=== PATIENT | female | born 1985 | race Caucasian/White ===

== ENCOUNTER 2022-10-17 08:27 | Outpatient (CLI) | payer OTHER, BC, SELFPAY ==
--- OUTSIDE RECORDS SUMMARY | 2022-10-17 08:36 | XMS_ITS | Encounter Summary ---
:1985 Author Organization [facility] Address [address] [place] [address] Care Team Providers Name Role Phone Flora Rico APRN, CNP Primary Care Provider [phone] Encounter Details Date Type Department Care Team Description 04/09/2019 Orders Only Juan Miguel Aguilar Flora Rico, Hypothyroidism, [address] RASHARD BERG unspecified type MARCIO Encarnacion 100 [facility] [address] [place] [address] Social History Tobacco Use Types Packs/Day Years Used Date Smoking Tobacco: Never Smokeless Tobacco: Never Alcohol Use Standard Drinks/Week Comments No 0 (1 standard drink = 0.6 oz pure alcoho l) Alcohol Habits Answer Date Recorded How often do you have a drink containing alcohol? Never 04/08/2019 How many drinks containing alcohol do you have on a typical Not asked day when you are drinking? How often do you have six or more drinks on one occasion? No t asked Education Answer Date Recorded What is the highest level of school Bachelor's degree (e.g., BA, AB, 03/29/2019 you have completed or the highest BS) degree you have received? Sex Assigned at Date Recorded Not on file documented as of this encounter Plan of Treatment Not on filedocumented as of this encounter Visit Diagnoses Diagnosis Hypothyroidism, unspecified type documented in this encounter Care Teams Shingle Weaver Relationship Specialty Start Date End Date Flora Rico, OTIS, ANIMAL HUSBANDRY WORKER PCP - General 06/22/18 07/23/20 [address] [place] [address] documented as of this encounter
--- OUTSIDE RECORDS SUMMARY | 2022-10-17 08:36 | XMS_ITS | Encounter Summary ---
:1985 Author Organization [facility] Address [address] [place] [address] Care Team Providers Name Role Phone Flora Rico APRN, TOWER HELPER Primary Care Provider [phone] Encounter Details Date Type Department Care Team Description 04/08/2019 Lab Juan Miguel Aguilar Palpitations; [address] Hypothyroidism, unspecified type MARCIO Encarnacion [address] Social History Tobacco Use Types Packs/Day Years [...] Not on filedocumented as of this encounter Procedures Procedure Name Priority Date/Time Associated Diagnosis Comme nts GLOMERULAR Routine 04/08/2019 9:37 AM Palpitations Results f or this FILTRATION RATE CDT procedure ar e in the results section. TSH Routine 04/08/2019 9:37 AM Hypothyroidism, Result s for this CDT unspecified type procedure a re in the results section. BASIC METABOLIC Routine 04/08/2019 9:37 AM Palpitations Result s for this PANEL CDT procedure are i n the results section. documented in this encounter Results Glomerular filtration rate (GFR) (04/08/2019 9:37 AM CDT) athologist Signature GFR >60 04/08/2019 [facility] 6:51 PM CDT [facility] >60 04/08/2019 [facility] [place] GFR 6:51 PM CDT [facility] Comment: GFR calculated from serum creatinine v alue Chronic Kidney Disease less than 60 mL/m in/1.73 m2 Kidney Failure less than 15 mL/min/1.73 m2 Note: effective 03/31/07 IDMS-Traceable MDRD Study Equation used. Specimen Anatomical Collection Method Collection Time Receive d Time (Source) Location / / Volume Laterality 04/08/2019 9:37 AM 9 9:37 CDT AM CDT Flora Rico APRN, CNP LAB BLOOD ORDERABLES Performing Organization Address [facility] Phon e Number [facility] [address] [place] [address] TSH (04/08/2019 9:37 AM CDT) athologist Signature TSH, Sensitive 4.04 0.46 - 04/08/2019 [facility] 4.68 mIU/L 7:09 PM CDT [facility] Comment: The results from this or any other diagn ostic test should be used and interpreted only in the context of the overall clinical picture. Biotin levels in serum remain elevated f or up to 24 hours after oral or intravenous biotin adminis tration and may interfere with this assay to produce unr eliable results. Heterophilic antibodies in serum or plas ma samples may cause interference in immunoassays. ??Exposure to animal antigens, either in the environment or as part of treatment or imaging procedures, may have circulating anti-an imal antibodies present. These antibodies may interfere with the assay reagents to produce unreliable results. ??Results which are inconsistent with clinical observations indicate the need for additional testing. Specimen Anatomical Collection Method Collection Time Receive d Time (Source) Location / / Volume Laterality Blood (Blood, 04/08/2019 9:37 AM 04/08/20 19 5:38 Venous) CDT PM CDT Flora Rico APRN, CNP LAB BLOOD ORDERABLES Performing Organization Address City/[facility] Phon e Number [facility] [address] [place] [address] (ABNORMAL) Basic metabolic panel (04/08/2019 9:37 AM CDT) Analysis Performed At Patho logist Time Signature Sodium 140 135 - 145 04/08/2019 [facility] mEq/L 6:[address] [facility] Potassium 4.4 3.5 - 5.1 04/08/2019 [facility] mEq/L 6:[address] [facility] Chloride 104 98 - 107 04/08/2019 [facility] mEq/L 6:[address] [facility] CO2 31 (H) 22 - 29 04/08/2019 [facility] mmol/L 6:[address] [facility] Creatinine 0.8 0.4 - 1.2 04/08/2019 [facility] mg/dL 6:[address] [facility] BUN 18 5 - 25 04/08/2019 [facility] mg/dL 6:[address] [facility] Glucose 101 (H) 70 - 100 04/08/2019 [facility] mg/dL 6:[address] [facility] Calcium, 9.5 8.4 - 10.2 04/08/2019 [facility] Total,S mg/dL 6:[address] [facility] Fasting? No 04/08/2019 [facility] 9:38 AM [place] Specimen Anatomical Collection Method Collection Time Receive d Time (Source) Location / / Volume Laterality Blood (Blood, 04/08/2019 9:37 AM 04/08/20 19 9:37 Venous) CDT AM CDT Flora Rico APRN, CNP LAB BLOOD ORDERABLES Performing Organization Address City/State/ZIP Code Phon e Number [facility] [employer] [address] [place] [address] [facility] [address] [place] [address] LABORATORY documented in this encounter Visit Diagnoses Diagnosis Palpitations Hypothyroidism, unspecified type documented in this encounter Care Teams Corsets Salesperson Relationship Specialty Start Date End Date Flora Rico APRN, RASHARD PCP - General 06/22/18 07/23/20 100 [facility] [place] [id number] documented as of this encounter
--- OUTSIDE RECORDS SUMMARY | 2022-10-17 08:36 | XMS_ITS | Clinical Summary ---
:1985 Author Organization [facility] Address [address] [place] [address] Care Team Providers Name Role Phone Flora Rico APRN, REFRIGERATION PLANT CORK INSULATOR Primary Care Provider [phone] Allergies Active Allergy Reactions Severity Noted Date Comments Seasonal 10/18/2010 Gets stomach ac hes from all medication, but not allergi c to any. Medications Medication Sig Dispensed Refills Start Date End Date Status valACYclovir (VALTREX) Take 2 tablets 4 tablet 6 12/08/2018 Active 1 g tabletIndications: twice a day for Cold sore one day for cold sore if needed cetirizine (ZyrTEC) 10 Take 10 mg by 0 Active MG tablet mouth 1 (one) time each day levothyroxine TAKE ONE TABLET 90 tablet 3 04/09/2019 Active (SYNTHROID, LEVOTHROID) BY MOUTH EVERY 50 MCG DAY ON AN EMPTY tabletIndications: STOMACH 30 Hypothyroidism, MINUTES BEFORE unspecified type THE FIRST MEAL OF THE DAY etonogestrel-ethinyl INSERT ONE RING 9 each 3 01/03/2020 Active estradiol (NUVARING) INTO THE VAGINA 0.12-0.015 MG/24HR FOR 3 WEEKS, vaginal REMOVE FOR ONE ringIndications: WEEK, REPEAT WITH Encounter for NEW RING contraceptive management, unspecified type Active Problems No known active problems Immunizations Name Administration Dates Next Due INFLUENZA QUADRIVALENT MDV (IM) 08/10/2018, 08/07/2017, 07/18 Influenza (IM) Preservative Free 09/06/2013, 08/22/2009 Influenza TIV (IM) 08/04/2014, 09/06/2013, 08/06/2012, 08/20/2011, 09/13/2010, 09/20/2008 Influenza, Unspecified 09/06/2013, 08/20/2011, 09/20/2008 TD Preservative Free 07/17/2006 Td 07/17/2006 Tdap 06/29/2013, 04/13/2009 Family History Medical History Relation Comments Anesthesia problems Brother Hyperlipidemia Father Lung cancer Maternal Grandmother Anesthesia problems Mother Colon cancer Paternal Grandfather Hyperlipidemia Paternal Grandfather Breast cancer Paternal Grandmother Hyperlipidemia Paternal Grandmother Anesthesia problems Sister Asthma Sister Celiac disease Sister Mental illness Sister Relation Status Comments Brother Father Maternal Grandmother Mother Paternal Grandfather Paternal Grandmother Sister Social History Tobacco Use Types Packs/Day Years [...] Assigned at Date Recorded Not on file Last Filed Vital Signs Vital Sign Reading Time Taken Comments Blood Pressure 112/84 04/08/2019 8:39 AM CDT Pulse 81 04/08/2019 8:39 AM CDT Temperature 36.4 ??C (97.6 ??F) 04/08/2019 8:39 AM CDT Respiratory Rate 16 04/08/2019 8:39 AM CDT Oxygen Saturation 100% 04/08/2019 8:39 AM CDT Inhaled Oxygen Concentration - - Weight 67.8 kg (149 lb 7.6 oz) 04/08/2019 8:39 AM CDT Height 167 cm (5' 5.75) 04/08/2019 8:39 AM CDT Body Mass Index 24.31 04/08/2019 8:39 AM CDT Plan of Treatment Health Maintenance Due Date Last Done Comments COVID-19 Vaccine (4 - 02/26/2022 01/01/2022, 04/02/2021, Booster for Moderna series) 03/05/2021 Pap Smear 04/08/2022 04/08/2019, 04/29/2016 DTaP,Tdap,and Td Vaccines 06/29/2023 06/29/2013, 04/13/2009 , (3 - Td or Tdap) 07/17/2006, Additional history exists HPV Vaccines Aged Out No longer eligib le based on patient 's age to complete this topic Pneumococcal Vaccine: Aged Out No longer eligible Pediatrics (0 to 5 Years) based on patient's age and At-Risk Patients (6 to to co mplete this topic 64 Years) Insurance Payer Benefit Plan / Subscriber ID Effective Phone Address T ype Group Dates [facility] [id number] 2017-Pres [address] [place] [address] [facility] [id number] 2017-Pres [address] [address] [place] [address] [place] [address] (Home) [address] [place] [address] Care Teams Apprentice Carpenter Relationship Specialty Start Date End Date Flora Rico, SPEECH AND LANGUAGE CLINICIAN, REFRIGERATION PLANT CORK INSULATOR PCP - General Family Medicine 07/01/[address] [place] [address] [place] [address]
--- OUTSIDE RECORDS SUMMARY | 2022-10-17 08:36 | XMS_ITS | Clinical Summary ---
:1985 Author Organization [facility] [place] [address] Care Team Providers Name Role Phone Ayanna Johansen MD Unavailable [phone] Flora Rico NP Primary Care Provider Allergies Active Allergy Reactions Severity Noted Date Comments Unlisted Allergen Other - Describe In get s stomach aches (Include Detail In Comment Field from all medication, Comments) but not allergi c to any Medications Medication Sig Dispensed Refills Start Date End Date Status levothyroxine (LEVO-T) 50 Take 1 tablet 0 12/29/2019 Active mcg tablet by mouth before breakfast. cetirizine (ZYRTEC) 5 mg Take 1 tablet 0 12/29/2019 Active tablet by mouth once daily. Lactobac 42-Bifid Take by mouth. 0 12/29/2019 Active 8-yrihla-UNE 30-500-50 mg pwpk ascorbic acid, vitamin C, Take 1 tablet 0 12/29/2019 Active (VITAMIN C) 1,000 mg by mouth once tablet daily. cholecalciferol, Vitamin Take by mouth 1 Bottle 0 12/29/2019 Active D3, (D--SAV) 10 mcg/mL once daily. (400 unit/mL) drops elderberry fruit and Take by mouth. 0 12/29/2019 Active flower 460-115 mg cap melatonin 10 mg cap Take by mouth 0 12/29/2019 Active once daily in the evening. Cimetidine (TAGAMET) 800 Take 1 tablet 30 tablet 2 01/02/2020 Active mg tabletIndications: by mouth at Gastroesophageal reflux bedtime. 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 Overview: lactose intolerance Resolved Problems Problem Noted Date Resolved Date Supervision of normal first 08/31/2008 Immunizations Name Administration Dates Next Due Influenza, IIV3 (Age >=3 years) 09/20/2008 Td (Age >=7 Years) 07/17/2006 Tdap 04/13/2009 Family History Medical History Relation Name Comments Other Brother 2 hydrocephalus Hyperlipidemia Father Thyroid Disease Father low Hypertension Mother high Thyroid Disease Mother low Cancer-breast Paternal Grandmother age 68 Thyroid Disease Sister 2 Relation Name Status Comments Brother 1 Alive Brother 2 Father Alive Mother Alive Paternal Grandmother Sister 1 Alive Sister 2 Social History Tobacco Use Types Packs/Day Years Used Date Former Smoker Smokeless Tobacco: Never Used Comments: 04/2006 Alcohol Use Standard Drinks/Week Comments No 0 (1 standard drink = 0.6 oz pure alcoho l) 1-2 drinks a month Sex Assigned at Date Recorded Not on file Obstetrics History Para Term AB IAB SAB Ectopic Multiple Living Live Births 1 1 1 1 1 Date Outcome GA Total Labor/2nd/3rd Weight Sex Delivery Anes PTL Adela A 1 A5 Name Clin Labor 03/01 Term 41w 12h 00m/ 3.57 kg F Vag Epidu N Lisa L [facility] /2008 0d (7 lb ral ng zie 14 oz) Delivery Location: [place] Last Filed Vital Signs Vital Sign Reading Time Taken Comments Blood Pressure 126/84 12/29/2019 1:05 PM PHOTOGRAPHER'S MODEL Pulse 70 12/29/2019 1:05 PM PHOTOGRAPHER'S MODEL Temperature 36.9 ??C (98.4 ??F) 04/05/2010 4:24 PM CDT Respiratory Rate 12 12/29/2019 1:05 PM PHOTOGRAPHER'S MODEL Oxygen Saturation 100% 12/29/2019 1:05 PM PHOTOGRAPHER'S MODEL Inhaled Oxygen Concentration - - Weight 68.5 kg (151 lb) 12/29/2019 1:05 PM PHOTOGRAPHER'S MODEL Height 165.1 cm (5' 5) 06/14/2010 9:23 AM CDT Body Mass Index 25.13 06/14/2010 9:23 AM CDT Plan of Treatment Health Maintenance Due Date Last Done Comments COVID-19 vaccine series (#1) 06/16/1984 Depression screening for age 12+ 1995 BMI (ht and wt on same day) for age 0212/17/2001 18+ Hepatitis C screening for age 18-79 2001 Pap test for age 21-65 06/14/2013 06/14/2010, 06/14/2010, 04/13/2009 Tetanus booster 04/13/2019 04/13/2009, 07/17/2006 Influenza for age 9-49 07/17/2022 09/20/2008 HIV for age 15-65 Completed 08/02/2008 Tdap Completed 04/13/2009 Results Not on filefrom Last 3 Months Insurance Payer Benefit Plan / Subscriber ID Effective Dates Phone Addre ss Type Group [employer] [id number] 2019-Present [address] [place] [address] [employer] [id number] 2020-Presen [address] [facility] [place] [place] [address] Care Teams Informatics Nurse Specialist Relationship Specialty Start Date End Date Flora Rico NP PCP - General Emergency Medicine 12/29/19 Ayanna Johansen MD 07/22/11 [address] MARCIO Otto [id number]
--- OUTSIDE RECORDS SUMMARY | 2022-10-17 08:36 | XMS_ITS | Encounter Summary ---
:1985 Author Organization [facility] Address [address] [place] [address] Care Team Providers Name Role Phone Flora Rico CARD BRUSHER, ACADEMIC SUPPORT SPECIALIST Primary Care Provider [phone] Reason for Visit Reason Onset Date Comments Question on Cream Rx 06/30/2019 Encounter Details Date Type Department Care Team Description 06/30/2019 Telephone [place] Flora Rico, Question on Cream Rx [address] CARD BRUSHER, ACADEMIC SUPPORT SPECIALIST [place], [place] [address] [address] [facility] [phone] [place], [place] [address] Social History Tobacco Use Types Packs/Day Years [...] on file documented as of this encounter Miscellaneous Notes Telephone Encounter - Sanjuana Francois LPN - 06/30/2019 1:10 PM CDT Verbal given for 22g Ointment for the Mupirocin because the cream was 200.00 per Bert at the pharmacy. Telephone Encounter - Dolores Lester - 06/30/2019 11:38 AM CDT Bert with [facility] called requesting to talk with a nurse regarding the cream Rx. Please call Bert at [phone]. documented in this encounter Plan of Treatment Not on filedocumented as of this encounter Visit Diagnoses Not on filedocumented in this encounter Care Teams Supervisor Special Services Relationship Specialty Start Date End Date Flora Rico APRN, ACADEMIC SUPPORT SPECIALIST PCP - General 06/22/18 07/23/[address] [place] [address] MARCIO PITTS [address] documented as of this encounter
--- OUTSIDE RECORDS SUMMARY | 2022-10-17 08:36 | XMS_ITS | Encounter Summary ---
:1985 Author Organization [facility] Address [address] [place] [address] Care Team Providers Name Role Phone Flora Rico APRN, RASHARD Primary Care Provider Encounter Details Date Type Department Care Team Description 07/01/2021 Lab [place] [address] [place] [address] Social History Tobacco Use Types Packs/Day Years [...] as of this encounter Plan of Treatment Pending Results Name Type Priority Associated Diagnoses Date/Ti ut Lab collection (kit) level Lab Routine 0 07/01/2021 8:57 AM CDT 2 documented as of this encounter Visit Diagnoses Not on filedocumented in this encounter Care Teams Crusher Dry Ground Mica Relationship Specialty Start Date End Date Flora Rico APRN, VICE PRESIDENT PROCESS PCP - General Family Medicine 07/01/[address] [place] [address] documented as of this encounter
--- OUTSIDE RECORDS SUMMARY | 2022-10-17 08:36 | XMS_ITS | Encounter Summary ---
:1985 Author Organization [facility] Address [address] [place] [address] Care Team Providers Name Role Phone Flora Rico APRN, CNP Primary Care Provider [phone] Encounter Details Date Type Department Care Team Description 06/30/2019 Orders Only Blane Aguilar Flora Rico, Impetigo (Primary Dx) [address] RASHARD BERG [place], [place] 100 [facility] [address] [place] [address] Social History Tobacco Use Types Packs/Day Years [...] as of this encounter Visit Diagnoses Diagnosis Impetigo - Primary documented in this encounter Care Teams Glucose And Syrup Weigher Relationship Specialty Start Date End Date Flora Rico APRN, PROFILER HAND PCP - General 06/22/18 07/23/20 [address] [place] [address] documented as of this encounter
--- OUTSIDE RECORDS SUMMARY | 2022-10-17 08:36 | XMS_ITS | Encounter Summary ---
:1985 Author Organization [facility] Address [address] [place] [address] Care Team Providers Name Role Phone Flora Rico APRN, CNP Primary Care Provider [phone] Encounter Details Date Type Department Care Team Description 07/30/2019 Telephone Juan Miguel Aguilar Flora Rico, [address] RASHARD BERG [place], [place] [address] 100 [facility] [phone] [place], [place] [address] Social History Tobacco Use [...] this encounter Miscellaneous Notes Telephone Encounter - Flora Rico APRN, CNP - 07/30/2019 9:18 AM CDT The patient reports that she has developed pinkeye on the Thursday morning therefore a prescription for gentamicin was sent to the pharmacy. documented in this encounter Plan of Treatment Not on filedocumented as of this encounter Visit Diagnoses Diagnosis Conjunctivitis of both eyes, unspecified conjunctivitis type - Primary documented in this encounter Care Teams Transcription Relationship Specialty Start Date End Date Flora Rico APRN, PLANT ANATOMIST PCP - General 06/22/18 07/23/20 100 [place] [address] documented as of this encounter
--- OUTSIDE RECORDS SUMMARY | 2022-10-17 08:36 | XMS_ITS | Encounter Summary ---
:1985 Author Organization [facility] Address [address] [place] [address] Care Team Providers Name Role Phone Flora Rico ACTING INSTRUCTOR, STOCK HOLDER Primary Care Provider [phone] Reason for Visit Reason Comments Med Refill Encounter Details Date Type Department Care Team Description 01/02/2020 Refill [place] Flora Rico, Encounter for [address] ACTING INSTRUCTOR, STOCK HOLDER contraceptive [place], [place] [address] [facility] management, unspecified [phone] [place], [place] [address] type Social History Tobacco Use Types Packs/Day Years [...] this encounter Miscellaneous Notes Telephone Encounter - Alejandra Barcenas LPN - 01/03/2020 7:49 AM CST Requested Prescriptions Pending Prescriptions Disp Refills ??? etonogestrel-ethinyl estradiol (NUVARING) 0.12-0.015 MG/24HR vaginal ring [Pharmacy Med Name: NUVARING 0.12-0.015MG/24HR RING] 9 each 3 Sig: INSERT ONE RING INTO THE VAGINA FOR 3 WEEKS, REMOVE FOR ONE WEEK, REPEAT WITH NEW RING Nuvaring is not found as current medication. Found in med history: etonogestrel-ethinyl estradiol (NUVARING) 0.12-0.015 MG/24HR vaginal ring [[id number]] ??DISCONTINUED ?? Order Details Dose, Route, Frequency: As Directed Dispense Quantity: 9 each Refills: 3 Fills remaining: -- ?? Sig: Insert vaginally and leave in place for 3 consecutive weeks, then remove for 1 week. Patient not taking: Reported on 04/08/2019 ?? Discontinue Date: 04/08/2019 09:25 Discontinue User: Flora Rico APRN, STOCK HOLDER Discontinue Reason: -- Please review and advise pharmacy if refill is or is not appropriate. Thank you! TIONAL CHILDCARE TEACHER documented in this encounter Plan of Treatment Not on filedocumented as of this encounter Visit Diagnoses Diagnosis Encounter for contraceptive management, unspecified type documented in this encounter Care Teams Retoucher Relationship Specialty Start Date End Date Flora Rico APRN, STOCK HOLDER PCP - General 06/22/18 07/23/[address] [place] [address] M[place] P[place] [address] documented as of this encounter
--- OUTSIDE RECORDS SUMMARY | 2022-10-17 08:37 | XMS_ITS | Encounter Summary ---
:[address] [facility] Address [address] [place] [address] Care Team Providers Name Role Phone Flora Rico APRN, RASHARD Primary Care Provider [phone] Reason for Visit Reason Onset Date Comments Med Refill 10/12/2018 Encounter Details Date Type Department Care Team Description 10/12/2018 Refill [place] Flora Rico, Encounter for [address] RASHARD BERG contraceptive [place], [place] [address] 100 [facility] management, unspecified [phone] [place], [place] [address] type Social History Tobacco Use Types Packs/Day Years Used Date Smoking Tobacco: Never Assessed Alcohol Habits Answer Date Recorded How often do you have a drink containing alcohol? Never 04/08/2019 How many drinks containing alcohol do you have on a typical Not asked day when you are drinking? How often do you have six or more drinks on one occasion? No t asked Sex Assigned at Date Recorded Not on file documented as of this encounter Miscellaneous Notes Telephone Encounter - Sanjuana Francois LPN - 10/12/2018 8:22 AM CST 03/09/2018 PHYSICAL Pending: Nuvaring Family Fare AMINATED LAND CONSULTANT documented in this encounter Plan of Treatment Not on filedocumented as of this encounter Visit Diagnoses Diagnosis Encounter for contraceptive management, unspecified type documented in this encounter Care Teams Reception Manager Relationship Specialty Start Date End Date Flora Rico APRN, CARPENTER HELPER MAINTENANCE PCP - General Family Medicine 07/01/[address] [facility] [place] [id number] documented as of this encounter
--- OUTSIDE RECORDS SUMMARY | 2022-10-17 08:37 | XMS_ITS | Encounter Summary ---
:1985 Author Organization [facility] Address [address] [place] [id number] Care Team Providers Name Role Phone Charlee Rico CLINICAL QUALITY ANALYST, SOLE MOLDER Primary Care Provider [phone] Reason for Visit Reason Comments Annual Exam Encounter Details Date Type Department Care Team Description 04/08/2019 Office Visit Blane Aguilar Charlee Rico Annual physical exam (Primar y Dx); [address], RASHARD BERG Palpitations; [place] [address] Hypothyroidism, unspecified type; [address] [place] [address] Floaters in visual field, bilateral; [phone] Mass of left hand; Screening for c ervical cancer Social History Tobacco Use Types Packs/Day Years [...] on file documented as of this encounter Last Filed Vital Signs Vital Sign Reading [...] Mass Index 24.31 04/08/2019 8:39 AM CDT documented in this encounter Patient Instructions Patient InstructionsCharlee Rico APRN, CNP - 04/08/2019 8:40 AM CDT Will call with the lab results No medication changes now documented in this encounter Progress Notes Charlee Rico APRN, CNP - 04/08/2019 8:40 AM CDT Well Adult - Estab Subjective Patient ID: Michelle Serra is a 33 y.o. female presenting for the following concerns. Chief Complaint Patient presents with ??? Annual Exam HPI: The patient is an otherwise healthy 33-year-old female presenting ambulatory to the clinical settingtoday for an annual physical. 3, para 3. The patient's last menstrual period was 2 weeks ago, with light spotting since, as she is no longer on the NuvaRing. The patient is in a monogamous relationship with her who had a vasectomy 1 month ago, and she is no longer needing contraception. The patient reports the post vasectomy semen analysis has not been completed yet. The patient had anormal Pap smear on 04/29/2016, no HPV co- testing; therefore, she is due. The patient's immunizationsare up to date including her Tdap on 06/29/2013. The patient formally exercises on a daily basis. Thepatient feels she attains an adequate amount of dietary calcium as she does drink lactose-free milk. The patient has a history of allergies, irritable bowel syndrome, cold sores, and hypothyroidism. The patient takes Zyrtec 10 mg daily for her seasonal allergies, with fair control of her symptoms. Thepatient is on a probiotic daily for irritable bowel syndrome symptoms, which is effective. The patient takes Valtrex as needed for cold sores. The patient has a history of hypothyroidism, diagnosed in April,, and is currently on Synthroid 50 mcg daily. The patient reports she has a mass as she points to the palmar surface of her left hand, along the third MCP joint, which is not bothersome, unless she applies direct pressure on it, such as when she grabs the handle of a shovel, most noticeable when shoveling snow this winter. The patient has had 3 episodes of heart palpitations in the past couple of months. The patient reports the first episode of palpitations started when she was extremely stressed, leaving her with a feeling her heart was beating in her throat, which lasted for about 1/2-hour. She reports the second episode was on her way home from the gym, after exercising, when she was not stressed, and more recently a minor episode occurred. She is unsure if her heart rate is regular, or irregular. The patient denies any chest pain discomfort, but more of an annoyance. The patient denies any other symptoms associated with the palpitations, no diaphoresis, dyspnea, lightheadedness, dizziness, presyncope and/or syncope. The patient has experienced lightheadedness and dizziness, not associated with her palpitations, butparticularly if she stands up too fast. She had one episode of dizziness, when helping one of her children this winter, standing up quickly, when she experienced cold sweats, and had to sit down to alleviate the felling. The patient feels her symptoms are directly correlated with positional changes. The patient reports she has had episodes of floaters, flashing lights in front of her eyes, bilaterally, which will last for about 1/2-hour, with a tired headache afterwards, as she has strained her eyes, but she does not develop a headache per se. She has had 4 episodes since the beginning of the year. The patient researched her symptoms which she feels they are consistent with an ocular migraine. No associated dizziness, palpitations, or other neurological symptoms. The following portions of the patient's chart were reviewed in this encounter and updated as appropriate: Tobacco Allergies Meds Problems Med Hx Surg Hx Fam Hx Soc Hx Current Outpatient Medications: ??? cetirizine (ZyrTEC) 10 MG tablet, Take 10 mg by mouth 1 (one) time each day, Disp: , Rfl: ??? valACYclovir (VALTREX) 1 g tablet, Take 2 tablets twice a day for one day for cold sore if needed, Disp: 4 tablet, Rfl: 6 ??? levothyroxine (SYNTHROID, LEVOTHROID) 50 MCG tablet, TAKE ONE TABLET BY MOUTH EVERY DAY ON AN EMPTY STOMACH 30 MINUTES BEFORE THE FIRST MEAL OF THE DAY, Disp: 90 tablet, Rfl: 3 Allergies Allergen Reactions ??? Seasonal Gets stomach aches from all medication, but not allergic to any. Immunization History Administered Date(s) Administered ??? INFLUENZA QUADRIVALENT MDV (IM) 08/10/2015, 08/07/2017, 08/10/2018 ??? Influenza (IM) Preservative Free 08/22/2009, 09/06/2013 ??? Influenza TIV (IM) 09/20/2008, 09/13/2010, 08/20/2011, 08/06/2012, 09/06/2013, 08/04/2014 ??? Influenza, Unspecified 09/20/2008, 08/20/2011, 09/06/2013 ??? TD Preservative Free 07/17/2006 ??? Td 07/17/2006 ??? Tdap 04/13/2009, 06/29/2013 Past Medical History: Diagnosis Date ??? Hx of cold sores ??? Hypothyroidism Past Surgical History: Procedure Laterality Date ??? BREAST SURGERY 06/2002 History of breast surgery + Breast reduction 06/2002 Family History Problem Relation Age of Onset ??? Anesthesia problems Mother ??? Hyperlipidemia Father ??? Mental illness Sister ??? Anesthesia problems Sister ??? Celiac disease Sister ??? Asthma Sister ??? Anesthesia problems Brother ??? Lung cancer Maternal Grandmother ??? Hyperlipidemia Paternal Grandmother ??? Breast cancer Paternal Grandmother ??? Hyperlipidemia Paternal Grandfather ??? Colon cancer Paternal Grandfather Social History Socioeconomic History ??? Marital status: Spouse name: Not on file ??? Number of children: Not on file ??? Years of education: Not on file ??? Highest education level: Bachelor's degree (e.g., BA, AB, BS) Occupational History Comment: [employer] Social Needs ??? Financial resource strain: Not on file ??? Food insecurity: Worry: Not on file Inability: Not on file ??? Transportation needs: Medical: Not on file Non-medical: Not on file Tobacco Use ??? Smoking status: Never Smoker ??? Smokeless tobacco: Never Used Substance and Sexual Activity ??? Alcohol use: No Frequency: Never ??? Drug use: No ??? Sexual activity: Not on file Lifestyle ??? Physical activity: Days per week: Not on file Minutes per session: Not on file ??? Stress: Not on file Relationships ??? Social connections: Talks on phone: Not on file Gets together: Not on file Attends uatsdin service: Not on file Active member of club or organization: Not on file Attends meetings of clubs or organizations: Not on file Relationship status: Not on file ??? Intimate partner violence: Fear of current or ex partner: Not on file Emotionally abused: Not on file Physically abused: Not on file Forced sexual activity: Not on file Other Topics Concern ??? Not on file Social History Narrative ??? Not on file REVIEW OF SYSTEMS: GENERAL: No fevers, chills, change in weight and/or change in appetite. The patient has a certain level fatigue, which has not changed in nature. The patient has insomnia; she typically can fall asleep, but then wakes up at midnight, often takes a melatonin, is able to fall back to sleep, and not wakeup groggy the next morning. SKIN: No rashes, lesions and/or pruritus. The patient was recently diagnosed with impetigo on her right face, and is being treated with Keflex, with resolution of her symptoms. HEAD AND NECK: The patient does not typically have headaches nor neck discomfort. EYES: See HPI. The patient has experienced floaters, flashing lights in her eyes, bilaterally, whichhas happened 4 times this past year leaving her with a tired feeling in her eyes, causing some mild headache discomfort, but not a headache per se. The patient was evaluated by an assistant professor of drama last year, and these symptoms started after her last visual exam. EARS: No hearing loss, no tinnitus. NOSE: The patient does have seasonal allergies controlled with Zyrtec 10 mg daily. No chronic sinusitis. MOUTH AND THROAT: No problems with her teeth or gums. She sees a dentist on a regular basis. CARDIOVASCULAR: See HPI. The patient has episodes of lightheadedness and dizziness when she stands too quickly. The patient reports she has had 3 different episodes of palpitations, in the past 2 months, the first 1 lasted an entire half hour, a feeling her heartbeat is in her throat, the second one gardner ppened after a work out in the gym, and she had a recent brief episode. The patient has no associated symptoms with the palpitations, no diaphoresis, dyspnea, chest pain, discomfort, lightheadedness, dizziness, presyncope and/or syncope. No peripheral edema. No cardiac murmurs. RESPIRATORY: No dyspnea on exertion, cough, asthma and/or wheezing. BREASTS: No masses, discharge, or change in appearance. GASTROINTESTINAL: The patient reports she has irritable syndrome which has improved with a probiotic. She denies nausea, vomiting, diarrhea, hematochezia, heartburn, and/or constipation. GENITOURINARY: No urinary frequency, urgency, and/or hematuria. GYNECOLOGIC: 3, para 3. The patient last menstrual period was 2 weeks ago, which has been irregular, because she is no longer has the NuvaRing. The patient's had a vasectomy as a form of contraception. The patient had a normal Pap smear on 04/29/2016, no HPV co-testing; therefore, the recommendation would be to repeat the Pap smear now. ENDOCRINE: The patient was diagnosed with hypothyroidism in April,, and is on Synthroid 50 mcg daily. No history of impaired fasting glucose. MUSCULOSKELETAL: No arthritis, limited range of motion, and/or joint swelling. NEUROLOGIC: See HPI. The patient has had episodes of floating, flashing lights, in her eyes bilaterally, 4 separate episodes this past year, which does not lead to headache discomfort, but more of an eye strain, as she is trying to see through these. No numbness, tingling, and/or weakness. PSYCHIATRIC: The patient reports having higher levels of anxiety, alludes she was quite stressed a couple of months ago, when she had her first episode of palpitations, and feels there is a correlation. Objective Visit Vitals BP 112/84 (BP Location: Left arm, Patient Position: Sitting) Pulse 81 Temp 36.4 ??C (97.6 ??F) (Temporal) Resp 16 Ht 1.67 m (5' 5.75) Wt 67.8 kg (149 lb 7.6 oz) SpO2 100% BMI 24.31 kg/m?? Smoking Status Never Smoker BSA 1.77 m?? GENERAL: The patient is alert, orientated and in no apparent distress. HEET: Head normocephalic. Eyes - pupils round and reactive to light. EOMs intact without nystagmus. Ears - normal canals, normal pearly alonso TMs bilaterally. Throat - normal oropharynx. Uvula rises midline. No erythema. NECK: Supple. No cervical or posterior lymphadenopathy. No thyromegaly. BREASTS: Symmetric, no retractions, discharge or lesions. Contour and consistency firm and homogenous. No masses or tenderness, no lymphadenopathy. INTEGUMENTARY: Skin is warm and dry. No evidence of lesions. The patient has a mild healing rash on her right cheek. CARDIOVASCULAR: Normal heart rate and rhythm. No murmur. No peripheral edema. Positive peripheral pulses, x4. RESPIRATORY: Lungs are clear, bilaterally. No wheezing. MUSCULOSKELETAL: The patient moves freely about the room. Examining the palmar surface of the patient's left, third finger, along the MCP joint, there is a palpable mobile mass about the size of a BB; no skin color tissue changes over the top of it. GYNECOLOGIC: External genitalia has no lesions, discharge. Internal genitalia, vaginal eisenberg are pink, no lesions. The cervix is pink, slightly friable. No lesions. Small amount of nonodorous clear discharge. Specimen for Pap test obtained. Bimanual - no pain on moving cervix. Uterus midline, no enlargement, masses or tenderness. Adnexa, ovaries not enlarged, no tenderness. GASTROENTEROLOGY: Abdomen is soft, no organomegaly, and positive bowel sounds. NEUROLOGICAL: The patient is alert and oriented to person, place, time, and situation. PSYCHIATRIC: The patient's affect is appropriate. DIAGNOSTICS: TSH, BMP, Pap smear, and HPV co-test. Assessment/Plan Michelle was seen today for annual exam. Diagnoses and all orders for this visit: Annual physical exam (Primary) Palpitations - Basic metabolic panel; Future Hypothyroidism, unspecified type - TSH; Future Floaters in visual field, bilateral Mass of left hand Screening for cervical cancer - Pap Smear - HPV High Risk DNA Detection with Genotyping Discussed the plan of care with the patient. The patient's immunizations are up-to-date, having had a Tdap on 06/29/2013. The patient feels she attains an adequate amount of dietary calcium. The patientwill continue to exercise on a formal basis. Recommended a formal eye exam for her floaters and/or neurology referral. The patient will proceed with a vision examination, but no formal neurology examination at this time. Recommended the patient's have the postvasectomy semen analysis completedbefore completely discontinuing contraception. Will renew the patient's Synthroid after reviewing the TSH results, and with the palpitations she has been experiencing, may consider increasing the dose.Recommended eliminating all caffeine to prevent palpitations. If the palpitations become significant, persistent, she can consider further evaluation with EKG, Holter monitor, and cardiology referral. T he patient can consider having the cyst like mass from her left hand removed, but declines, as she feels it is not too problematic. The patient will be notified of her lab results. The patient agrees and understands this plan of care. Charlee Rico APRN, SOLE MOLDER documented in this encounter Plan of Treatment Not on filedocumented as of this encounter Procedures Procedure Name Priority Date/Time Associated Comments Diagnosis HPV HIGH RISK DNA Routine 04/08/2019 9:10 AM Screening for Res ults for this DETECTION WITH CDT cervical cancer procedure are in GENOTYPING the results section. PAP TEST Routine 04/08/2019 9:10 AM Screening for Results for this CDT cervical cancer procedure ar e in the results section. documented in this encounter Results (ABNORMAL) Basic metabolic panel (04/08/2019 9:37 AM CDT) Analysis Performed At Patho logist Time Signature Sodium 140 135 - 145 04/08/2019 [place] mEq/L 6:51 PM [facility] Potassium 4.4 3.5 - 5.1 04/08/2019 [place] mEq/L 6:51 PM [facility] Chloride 104 98 - 107 04/08/2019 [place] mEq/L 6:51 PM [facility] CO2 31 (H) 22 - 29 04/08/2019 [place] mmol/L 6:51 PM [facility] Creatinine 0.8 0.4 - 1.2 04/08/2019 [place]IGE mg/dL 6:51 PM [facility] BUN 18 5 - 25 04/08/2019 [place]IG[place] mg/dL 6:51 PM [facility] Glucose 101 (H) 70 - 100 04/08/2019 [place]IGE mg/dL 6:51 PM [facility] Calcium, 9.5 8.4 - 10.2 04/08/2019 [place]WIG[place] Total,S mg/dL 6:51 PM [facility] Fasting? No 04/08/2019 [facility] [place] 9:38 AM [facility] Specimen Anatomical Collection Method Collection Time Receive d Time (Source) Location / / Volume Laterality Blood (Blood, 04/08/2019 9:37 AM 04/08/20 19 9:37 Venous) CDT AM CDT Charlee Rico APRN, CNP LAB BLOOD ORDERABLES Performing Organization Address City/[facility]/ZIP Code Phon e Number [facility] [address] [place] [address] [facility] [address] [place] [address] LABORATORY TSH (04/08/2019 9:37 AM CDT) athologist Signature TSH, Sensitive 4.04 0.46 - 04/08/2019 [place] MEDICA L 4.68 mIU/L 7:09 PM [facility] Comment: The results from this [...] 04/08/20 19 5:38 Venous) CDT PM CDT Charlee Rico APRN, CNP LAB BLOOD ORDERABLES Performing Organization Address City/[facility]/ZIP Code Phon e Number [facility] [address] [place] [address] HPV High Risk DNA Detection with Genotyping (04/08/2019 9:10 AM CDT) [facility] gist Method Time Signature Source Vaginal 04/13/2019 [facility] 7:16 PM CDT LABORATORIES HPV Type 16 Negative Negative 04/13/2019 [facility] 7:16 PM CDT LABORATORIES HPV Type 18 Negative Negative 04/13/2019 [facility] 7:16 PM CDT LABORATORIES HPV non-Type Negative Negative 04/13/2019 [facility] 16 or 18 7:16 PM CDT LABORATORIES Comment: The following Other High Risk HPV types were not detected: 31, 33, 35, 39, 45, 51, 52, 56, 58, 59, 66, and 68 ADDITIONAL INFORMATIO N This test has been modified from the talon nicholas's instructions. Its performance characteri stics were determined by [facility] in a manner co nsistent with CLIA requirements. This test has not been blayne ared or approved by the U.S. Food and Drug Administration. Test Performed by: [facility] [address] [place] [address] Specimen (Source) Anatomical Collection Method Collection Time Re ceived Time Location / / Volume Laterality Pap collection 04/08/2019 9:10 04/08/2019 1:20 bottle AM CDT PM CDT Charlee Rico APRN, SOLE MOLDER LAB CYTOLOGY ORDERABLES Performing Organization Address City/State/ZIP Code Phon e Number [facility] see result attachment for specific address Pap Smear (04/08/2019 9:10 AM CDT) Specimen Anatomical Collection Method Collection Time Receive d Time (Source) Location / / Volume Laterality Sure Path PAP, 04/08/2019 9:10 AM 019 2:50 screen CDT PM CDT Narrative [facility] - 05/2019 2:23 PM CDT ? [facility] ? [address] ?[place] [address] ? Patient: ?MICHELLE SERRA ? Procedure: ? 04/08/2019 09:10 /Age/Sex: ??1985, 33 Y, F ? Received: ?04/08/2019 14:50 ?Accession #: ?? [id number] Billing: ?[id number] ?Patient Location: [facility] ?OFFICE Ordered by: ?? CHARLEE RICO APRN, C FLOATING DERRICK OPERATOR ? Attending: ? CHARLEE RICO, ? CLINICAL QUALITY ANALYST, SOLE MOLDER ?COLON THERAPIST CYTOLOGY REVISED REPORT SPECIMEN: (A) SURE PATH PAP, SCREEN SPECIMEN DESCRIPTION: Vaginal Received cloudy specimen in [facility] via l. CLINICAL INFORMATION: LMP: 05/??/2018 ?? Prev.normal: 2016 SPECIMEN ADEQUACY: Satisfactory for Evaluation GENERAL CATEGORIZATION: Negative for Intraepithelial Lesion or M alignancy AMENDMENT REASON: This case is being amended to reflect th ilsette correction of the Screened By jose to Angela Dumas. ??Due to a [employer] prog ramming issue, the name of the Screened By jose cannot be changed. Therefore, plepurnima e note that this case was actually screened by NEYDA Wilson. PAP Test Disclaimer Cervical cytology is a screening test pr imarily for squamous cancer and its precursors and has associated false-nega tive and false-positive results. Regular sampling and follow-up of unexplained cl inical signs and symptoms are recommended to minimize the impact of false negative and false positive results. Screened By: LIZ HUERTA Signed By: NEYDA WILSON(ASCP) <Sign Out Signature> Reported: ??04/22/2019 ? Page 1 of 1 Charlee Rico APRN, CNP LAB CYTOLOGY ORDERABLES Performing Organization Address City/State/ZIP Code Phon e Number [facility] [address] [place] [address] documented in this encounter Visit Diagnoses Diagnosis Annual physical exam - Primary Routine general medical examination at a health care facility Palpitations Hypothyroidism, unspecified type Floaters in visual field, bilateral Mass of left hand Screening for cervical cancer Screening for malignant neoplasm of the cervix documented in this encounter Care Teams Debone Supervisor Relationship Specialty Start Date End Date Charlee Rico APRN, SOLE MOLDER PCP - General 06/22/18 07/23/[address] [place] [id number] documented as of this encounter
--- OUTSIDE RECORDS SUMMARY | 2022-10-17 08:37 | XMS_ITS | Encounter Summary ---
:1985 Author Organization [facility] Address [address] [place] [address] Care Team Providers Name Role Phone Flora Rico APRN, RASHARD Primary Care Provider [phone] Reason for Visit Reason Comments Earache Encounter Details Date Type Department Care Team Description 12/09/2018 Office Visit [place] Flora Rico Right ear pain [address] M, RASHARD BERG (Primary Dx) [place], [place] [address] [facility] [address] [place] [address] Social History Tobacco Use Types Packs/Day Years [...] Sign Reading Time Taken Comments Blood Pressure 110/80 12/09/2018 2:52 PM REGROOVER Pulse 77 12/09/2018 2:52 PM REGROOVER Temperature 37.1 ??C (98.8 ??F) 12/09/2018 2:52 PM REGROOVER Respiratory Rate 16 12/09/2018 2:52 PM REGROOVER Oxygen Saturation 100% 12/09/2018 2:52 PM REGROOVER Inhaled Oxygen Concentration - - Weight 69.5 kg (153 lb 3.5 oz) 12/09/2018 2:52 PM REGROOVER Height 165.1 cm (5' 5) 12/09/2018 2:52 PM REGROOVER Body Mass Index 25.5 12/09/2018 2:52 PM REGROOVER documented in this encounter Patient Instructions Patient InstructionsChsarah Rico APRN, CNP - 12/09/2018 2:40 PM REGROOVER Take Sudafed per label directions call if symptoms persistent or worsen. OOVER documented in this encounter Progress Notes Flora iRco APRN, CNP - 12/09/2018 2:40 PM CST Estab Patient Visit Subjective Patient ID: Dolores Mercer is a 32 y.o. female presenting for the following concerns. Chief Complaint Patient presents with ??? Earache HPI: The patient is a pleasant 32-year-old female presenting ambulatory to the clinical setting today with intermittent right ear pain, discomfort, for the past couple of days. The patient describes her pain as a brief shooting sensation, several times per day. The patient notices increased pressure in her right ear when swallowing, a pressure she feels starts from the inside out. The patient she feels blessing her right ear pressure radiates down into her throat, but she does not have a sore throat per se.No ear drainage. No decreased hearing. The patient has had mild nasal congestion, nasal drainage, but nothing she deems problematic. No fever, no chills. The patient denies numbness, tingly, prickly sensation along the right side of her face or head. No rashes. The patient reports she developed a coldsore yesterday, which typically erupts only when she is sick, or with a sunburn. The patient had an all of her headache yesterday, and today her headache is localized on the right side of her head, as she points to her right temporal area. The patient reports she is menstruating, and typically has a headache before her menses. Non-smoker. ROS: GENERAL: No fever, no chills. INTEGUMENTARY: The patient reports she had a cold sore erupt over her upper lip yesterday, along theright side. The patient points to a warty-like lesion over her left third finger, along the palmar surface, just distal to the PIP joint, she has had for the past couple of weeks, which is not painful,and will continue to monitor. No rashes. EARS: See HPI. The patient has had intermittent shooting right ear discomfort for the past couple ofdays. NOSE: Mild nasal congestion, nasal drainage, but nothing problematic. MOUTH/THROAT: See HPI. The patient reports she does have increased throat discomfort when swallowing, but not a sore throat per se. MUSCULOSKELETAL: The patient points to her elbow, where there is a palpable cystlike lesion, about the size of a M&M, which developed 2 weeks ago, that is not necessarily painful; however, when sheputs direct pressure on it, it dose cause discomfort, and she will continue to monitor. NEUROLOGICAL: No numbness, tingling over the right side of her face. The following portions of the patient's chart were reviewed in this encounter and updated as appropriate: Tobacco Allergies Meds Problems Med Hx Surg Hx Fam Hx Soc Hx Objective Visit Vitals BP 110/80 (BP Location: Left arm, Patient Position: Sitting) Pulse 77 Temp 37.1 ??C (98.8 ??F) (Temporal) Resp 16 Ht 1.651 m (5' 5) Wt 69.5 kg (153 lb 3.5 oz) SpO2 100% BMI 25.50 kg/m?? Smoking Status Never Smoker BSA 1.79 m?? GENERAL: The patient is alert, orientated, and in no apparent distress. HEENT: Head normocephalic. Eyes - pupils round and reactive to light. Ears - normal canals, normal pearly alonso TMs, with evidence of fluid behind the right tympanic membrane. Throat - erythematous oropharynx. Uvula rises midline. Neck - Supple. No cervical or posterior lymphadenopathy. No thyromegaly. INTEGUMENTARY: Cold sore on her right upper lip area. Examining the left third finger, along the palmar surface, distal to the PIP joint, is a warty like lesion, approximately 3 x 3 mm in size. MUSCULOSKELETAL: Palpable mass over her left elbow, approximately the size of an M&M, consistentwith a cyst. DIAGNOSTICS: Rapid strep negative, throat culture pending. Assessment/Plan Dolores was seen today for earache. Diagnoses and all orders for this visit: Right ear pain (Primary) - Rapid strep screen; Future Discussed the plan of care with the patient. Rapid strep was negative. The patient's right ear appears normal, with exception of mild fluid behind the TM, recommended Sudafed per label directions. If her symptoms persist, worsen, and/or other symptoms develop, the patient agrees to notify me. The patient will continue to monitor the warty lesion on her left third finger, and cystic mass on her left elbow, and follow up as needed. The patient agrees and understands this plan of care. Flora Rico APRN, CNP OOVER documented in this encounter Plan of Treatment Not on filedocumented as of this encounter Results Rapid strep screen (12/09/2018 1:10 PM REGROOVER) athologist Signature Strep A Ag, NEGATIVE Negative 12/09/2018 [facility] [employer] Rapid 3:30 PM REGROOVER [place] Specimen Anatomical Collection Method Collection Time Receive d Time (Source) Location / / Volume Laterality Swab (Throat 12/09/2018 1:10 PM 9 3:18 Swab) REGROOVER PM REGROOVER Flora Rico APRN, CNP LAB BODY FLUIDS AND STOOL S ORDERABLES Performing Organization Address City/State/ZIP Code Phon e Number [facility] [employer] [address] [place] [address] documented in this encounter Visit Diagnoses Diagnosis Right ear pain - Primary Unspecified otalgia documented in this encounter Care Teams Superintendent Production Relationship Specialty Start Date End Date Flora Rico APRN, RASHARD PCP - General 06/22/18 07/23/20 100 [facility] [place] [address] documented as of this encounter
--- OUTSIDE RECORDS SUMMARY | 2022-10-17 08:37 | XMS_ITS | Encounter Summary ---
:1985 Author Organization [facility] Address [address] [place] [address] Care Team Providers Name Role Phone Flora Rico APRN, CNP Primary Care Provider [phone] Encounter Details Date Type Department Care Team Description 10/11/2018 Orders Only [facility] Agu[place] Flora Rico Encounter for [address] M, RASHARD BERG contraceptive [place], [place] [address] management, unspecified [address] [place] [address] type (Primary Dx) [phone] Social History Tobacco Use Types Packs/Day Years [...] on file documented as of this encounter Progress Notes Flora Rico APRN, CNP - 10/11/2018 5:21 PM CST The patient is requesting to have her control renewed. Renewed the NuvaRing. ASSEMBLER documented in this encounter Plan of Treatment Not on filedocumented as of this encounter Visit Diagnoses Diagnosis Encounter for contraceptive management, unspecified type - Primary documented in this encounter Care Teams Electrical Equipment Technician Relationship Specialty Start Date End Date Flora Rico APRN, CNP PCP - General 06/22/18 07/23/20 [address] [place] [address] documented as of this encounter
--- OUTSIDE RECORDS SUMMARY | 2022-10-17 08:37 | XMS_ITS | Encounter Summary ---
:1985 Author Organization [facility] Address [address] [place] [address] Care Team Providers Name Role Phone Flora Rico APRN, RASHARD Primary Care Provider [phone] Encounter Details Date Type Department Care Team Description 12/08/2018 Orders Only [place] Flora Rico, Cold sore [address] RASHARD BERG [place] [address] [address] [facility] [address] [phone] [place], [place] [address] Social History Tobacco Use [...] as of this encounter Visit Diagnoses Diagnosis Cold sore Herpes simplex without mention of compli cation documented in this encounter Care Teams Surg Rn Relationship Specialty Start Date End Date Flora Rico, OTIS, TYPE CASTING MACHINE OPERATOR PCP - General 06/22/18 07/23/[address] [place] [address] documented as of this encounter
--- OUTSIDE RECORDS SUMMARY | 2022-10-17 08:37 | XMS_ITS | Encounter Summary ---
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 Prescribed Keflex 500 mg 3 times daily x7 days. The patient has an upcomingphysical and we can address any concerns at that time. documented in this encounter Plan of Treatment Not on filedocumented as of this encounter Visit Diagnoses Diagnosis Impetigo - Primary documented in this encounter Care Teams Member Of The Legislative Council Relationship Specialty Start Date End Date Flora Rico APRN, CNP PCP - General 06/22/18 07/23/20 100 [facility] [place] [address] documented as of this encounter
--- OUTSIDE RECORDS SUMMARY | 2022-10-17 08:37 | XMS_ITS | Encounter Summary ---
:[address] [facility] Address [address] [place] [address] Care Team Providers Name Role Phone Flora Rico APRN, RASHARD Primary Care Provider [phone] Reason for Visit Reason Onset Date Comments Med Refill 09/15/2018 Encounter Details Date Type Department Care Team Description 09/15/2018 Refill [place] Flora Rico, Cold sore (Primary Dx) [address] RASHARD BERG [place], [place] [address] [address] [phone] [place], [place] [address] Social History Tobacco Use [...] this encounter Miscellaneous Notes Telephone Encounter - Anita Robin MA - 09/15/2018 9:26 AM CDT I have pended a medication for your review. documented in this encounter Plan of Treatment Not on filedocumented as of this encounter Visit Diagnoses Diagnosis Cold sore - Primary Herpes simplex without mention of compli cation documented in this encounter Care Teams Pressurised Container Filler Relationship Specialty Start Date End Date Flora Rico APRN, RASHARD PCP - General 06/22/18 07/23/[address] [place] [address] documented as of this encounter
--- OUTSIDE RECORDS SUMMARY | 2022-10-17 08:37 | XMS_ITS | Encounter Summary ---
:1985 Author Organization [facility] Address [address] [place] [address] Care Team Providers Name Role Phone Flora Rico APRN, CNP Primary Care Provider [phone] Reason for Visit Reason Comments Med Refill Encounter Details Date Type Department Care Team Description 02/28/2019 Refill [facility] Flora Rico, Hypothyroidism, [address] RASHARD BERG unspecified type [place] [address] [address] [facility] [address] (Primary Dx) [phone] [place], [place] [address] Social History Tobacco Use [...] Telephone Encounter - Sanjuana Francois LPN - 02/28/2019 4:20 PM CDT Left a detailed message left for the patient. Telephone Encounter - Flora Rico APRN, CNP - 02/28/2019 3:52 PM CDT The Synthroid was renewed for 50 mcg daily times 3 months. The patient does need a follow-up clinic appointment and labs before future renewals. Thanks Alcon Telephone Encounter - Alejandra Barcenas LPN - 02/28/2019 3:30 PM CDT Last Rx Synthroid 50mcg tablets Take one tablet daily on an empty stomach #90, 1 refill prescribed 08/09/2018 by Flora Rico APRN, CNP Med/dx last reviewed 03/09/2018 (physical) No upcoming appt scheduled Results for MICHELLE SERRA ( ) as of 02/28/2019 15:33 Ref. Range 03/09/2018 09:40 TSH Latest Ref Range: 0.46 - 4.68 mIU/L 4.40 Free T4 Latest Ref Range: 0.78 - 2.19 ng/dL 1.01 T3, Total Latest Ref Range: 0.97 - 1.69 ng/mL 1.16 documented in this encounter Plan of Treatment Not on filedocumented as of this encounter Visit Diagnoses Diagnosis Hypothyroidism, unspecified type - Prima ry documented in this encounter Care Teams Data Modeling Architect Relationship Specialty Start Date End Date Flora Rico APRN, CNP PCP - General 06/22/18 07/23/20 100 [facility] [place] [address] documented as of this encounter
--- OUTSIDE RECORDS SUMMARY | 2022-10-17 08:37 | XMS_ITS | Encounter Summary ---
:1985 Author Organization [facility] Address [address] [place] [address] Care Team Providers Name Role Phone Flora Rico APRN, LEG MAN Primary Care Provider Encounter Details Date Type Department Care Team Description 12/09/2018 Lab [place] [facility] Right ear pain [address] [place], [place] [address] Social History Tobacco Use Types [...] Name Priority Date/Time Associated Diagnosis Comme nts RAPID GROUP A STREP Routine 12/09/2018 1:10 PM Right ear pain Results for this SCREEN TICKET MARKER procedure are i n the results section. STREP A CULTURE, Routine 12/09/2018 1:10 PM Right ear pain Res ults for this THROAT TICKET MARKER procedure are i n the results section. documented in this encounter Results Strep A culture, throat (12/09/2018 1:10 PM TICKET MARKER) [facility] Method Time Signature Throat Strep Negative for 12/11/2018 EDWIGE A Culture Group A 7:00 AM [facility] Strep at 48 LABORATORY hrs. Specimen Anatomical Collection Method Collection Time Receive d Time (Source) Location / / Volume Laterality 12/09/2018 1:10 PM 9 5:08 TICKET MARKER PM TICKET MARKER Flora Rico APRN, CNP LAB MICROBIOLOGY - GENERA L ORDERABLES Performing Organization Address City/State/ZIP Code Phon e Number [facility] [address] [place] [address] Rapid strep screen (12/09/2018 1:10 PM TICKET MARKER) P athologist Signature Strep A Ag, NEGATIVE Negative 12/09/2018 [facility] [employer] Rapid 3:30 PM TICKET [place] Specimen Anatomical Collection Method Collection Time Receive d Time (Source) Location / / Volume Laterality Swab (Throat 12/09/2018 1:10 PM 9 3:18 Swab) TICKET MARKER PM TICKET MARKER Flora Rico APRN, CNP LAB BODY FLUIDS AND STOOL S ORDERABLES Performing Organization Address City/State/ZIP Code Phon e Number [facility] [employer] [address] [place] [address] documented in this encounter Visit Diagnoses Diagnosis Right ear pain Unspecified otalgia documented in this encounter Care Teams Gaming Investigator Relationship Specialty Start Date End Date Flora Rico APRN, LEG MAN PCP - General 06/22/18 07/23/20 100 [facility] [address] documented as of this encounter
== END 2022-10-17 08:28 | disposition home or self-care (01) ==
LOC: KYNREF 08:27
PROVIDERS: PCP Nurse Practitioner Family; Visit Provider Nurse Practitioner Family
DX: E03.9 Hypothyroidism, unspecified (principal)
CPT/HCPCS: 84443

== ENCOUNTER 2023-11-26 08:16 | Outpatient (CLI) | payer BC, SELFPAY ==
--- OUTSIDE RECORDS SUMMARY | 2023-11-26 08:22 | XMS_ITS | Clinical Summary ---
Author Name Unknown Organization [employer] [facility] [employer] [facility] Address [place], [place] [address] Care Team Providers Care Icer Machine Operator Name Role Phone Ayanna Johansen MD Unavailable [phone] Flora Rico NP Primary Care Provider [phone] Allergies Active Allergy Reactions Criticality Noted Date Comments Unlisted Allergen (Include Detail In Comments) Other - Describe In Comment Field gets stomach aches from all medication, but not allergic to any Medications Medication Sig Dispensed Refills Start Date End Date Status levothyroxine (LEVO-T) 50 mcg tablet Take 1 tablet by mouth before breakfast. 0 12/29/2019 Active cetirizine (ZYRTEC) 5 mg tablet Take 1 tablet by mouth once daily. 0 12/29/2019 Active Lactobac 42-Bifid 6-qwyvnb-VFF 30-500-50 mg pwpk Take by mouth. 0 12/29/2019 Active ascorbic acid, vitamin C, (VITAMIN C) 1,000 mg tablet Take 1 tablet by mouth once daily. 0 12/29/2019 Active cholecalciferol, Vitamin D3, (D--SAV) 10 mcg/mL (400 unit/mL) drops Take by mouth once daily. 1 Bottle 0 12/29/2019 Active elderberry fruit and flower 460-115 mg cap Take by mouth. 0 12/29/2019 Active melatonin 10 mg cap Take by mouth once daily in the evening. 0 12/29/2019 Active Cimetidine (TAGAMET) 800 mg tabletIndications:Jeimy roesophageal reflux disease, esophagitis presence not specified Take 1 tablet by mouth at bedtime. 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 Overview: lactose intolerance Resolved Problems Problem Noted Date Diagnosed Date Resolved Date Supervision of normal first 08/31/2008 04/13/2009 Immunizations Name Administration Dates Next Due Influenza, [...] Types Packs/Day Years Used Date Smoking Tobacco: Former Smokeless Tobacco: Never Comments:04/2006 Alcohol Use Standard Drinks/Week Comments No 0 (1 standard drink = 0.6 oz pur e alcohol) 1-2 drinks a month Social Connections Answer Date Recorded Frequency of Communication with Friends and Fami ly Not on file 11/16/2021 Financial Resource Strain Answer Date R ecorded Difficulty of Paying Living Expenses Not on file 11/16/2021 Difficulty of Paying Living Expenses Not on file 11/16/2021 Sex and Gender Information Value Date Recorded Sex Assigned at Not on file Gender Identity Not on file Sexual Orientation Not on file Obstetrics History Para Term AB IAB SAB Ectopic Multiple Livin g Live Births 1 1 1 1 1 Date Outcome GA Total Labor Labor/2nd/3rd Weight Sex Delivery Anes PTL Adela A1 A5 Name Cl in 03/01 Term 41w 0d 12h 00m/ 3.57 kg (7 lb 14 oz) F Vag Epidu ral N [facility] Filed Vital Signs Vital Sign Reading Time Taken Comments Blood Pressure 126/84 12/29/2019 1:05 PM CHIEF LIFESTYLE OFFICER Pulse 70 12/29/2019 1:05 PM CHIEF LIFESTYLE OFFICER Temperature 36.9 ??C (98.4 ??F) 04/05/2010 4:24 PM CD T Respiratory Rate 12 12/29/2019 1:05 PM CHIEF LIFESTYLE OFFICER Oxygen Saturation 100% 12/29/2019 1:05 PM CHIEF LIFESTYLE OFFICER Inhaled Oxygen Concentration - - Weight 68.5 kg (151 lb) 12/29/2019 1:05 PM CHIEF LIFESTYLE OFFICER Height 165.1 cm (5' 5) 06/14/2010 9:23 AM CDT Body Mass Index 25.13 06/14/2010 9:23 AM CDT Plan of Treatment Health Maintenance Due Date Last Done Comments COVID-19 vaccine series (#1) 06/16/1984 Depression screening for age 12+ 1995 BMI (ht and wt on same day) for age 18+ 2001 Hepatitis C screening for ag e 18-79 2001 Pap test for age 21-65 06/14/2013 0, 06/14/2010, 04/13/2009 Tetanus booster 04/13/2019 04/13/2009, 07/17/2006 Influenza for age 9-49 07/17/2023 09/20/2008 HIV for age 15-65 Completed 08/02/2008 Tdap Completed 04/13/2009 Pneumococcal series for age 6-64 Aged Out No longer eligible b ased on patient's age to complete this topic Care Teams Icer Machine Operator Relationship Specialty Start Date End Date Flora Rico NP [address] [place] [address] PCP - General Emergency Medicine 12/29/19 Ayanna Johansen MD [address] [place] [address] 07/22/11
== END 2023-11-26 08:17 | disposition home or self-care (01) ==
PROVIDERS: PCP Nurse Practitioner Family; Visit Provider Nurse Practitioner Family
DX: Z00.00 Encounter for general adult medical examination without abnormal findings (principal); E03.9 Hypothyroidism, unspecified; R53.83 Other fatigue; N91.2 Amenorrhea, unspecified
CPT/HCPCS: 83001; 84443; 84703; 85025

== ENCOUNTER 2024-06-13 13:38 | Outpatient (CLI) | payer BC, SELFPAY ==
--- NOTE | 2024-06-13 13:40 | CRLHL7_ITS ---
For Patients: As a result of the Century Cures Act, medical imaging exams and procedure reports are released immediately into your electronic medical record. You may view this report before your referring provider. If you have questions, please contact your health care provider. BILATERAL SCREENING MAMMOGRAM WITH COMPUTER-AIDED DETECTION AND TOMOSYNTHESIS TECHNIQUE: CC and MLO views were obtained. These mammographic images have been obtained using full-field digital technique. These mammographic images were interpreted with the benefit of computer-aided detection. Breast Tomosynthesis was used in this interpretation. COMPARISON FILM: Baseline. FINDINGS: The breasts are heterogeneously dense, which may obscure small masses IMPRESSION: There is no radiographic evidence for malignancy. ASSESSMENT: BI-RADS Category 1: Negative RECOMMENDATION: Routine screening mammogram in 1 year. A lay language report of this examination will be provided to the patient. Miles Templeton M.D. Diagnostic Radiologist [email or web address] Transcribed: 2:12 p.krishna smith/Dictated by: Miles Templeton MD @ 06/14/2024 9:55:00 AM (Electronically Signed)
--- OUTSIDE RECORDS SUMMARY | 2024-06-13 13:41 | XMS_ITS | Clinical Summary ---
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 0 12/29/2019 Active Lactobac 42-Bifid 0-fzrxrn-JMH 30-500-50 mg pwpk Take by mouth. 0 12/29/2019 Active ascorbic acid, vitamin C, (VITAMIN C) 1,000 mg tablet Take 1 tablet by mouth once daily. 0 12/29/2019 Active cholecalciferol, Vitamin D3, (D--SAV) 10 mcg/mL (400 unit/mL) drops Take by mouth once daily. 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 Pulse 70 12/29/2019 1:05 PM BACKING IN MACHINE TENDER Temperature 36.9 ??C (98.4 ??F) 04/05/2010 4:24 PM CD T Respiratory Rate 12 12/29/2019 1:05 PM BACKING IN MACHINE TENDER Oxygen Saturation 100% 12/29/2019 1:05 PM BACKING IN MACHINE TENDER Inhaled Oxygen Concentration - - Weight 68.5 kg (151 lb) 12/29/2019 1:05 PM BACKING IN MACHINE TENDER Height 165.1 cm (5' 5) 06/14/2010 9:23 AM CDT Body Mass Index 25.13 06/14/2010 9:23 AM CDT Plan of Treatment Health Maintenance Due Date Last Done Comments Depression screening for age 12+ 1995 BMI (ht and wt on same day) for age 18+ 2001 Hepatitis C screening for ag e 18-79 2001 Pap test for age 21-65 06/14/2013 0, 06/14/2010, 04/13/2009 Tetanus booster 04/13/2019 04/13/2009, 07/17/2006 COVID-19 vaccine series (2022- season) 2023 Influenza for age 9-49 07/17/2024 09/20/2008 HIV for age 15-65 Completed 08/02/2008 Tdap Completed 04/13/2009 Pneumococcal series for age 6-64 Aged Out No longer eligible b ased on patient's age to complete this topic Procedures Procedure Name Priority Date/Time Associated Diagnosis Comments 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 :05/09/10 Last Pap Date ?:04/13/2009 Last Pap Result ?:NIL ABN Ponce/Bx Past 5 YRS :None Hormone Usage ?:None Menstrual Status ? :Regular Periods Ponce/Bx done today ? :No Additional Information :None given HPV Request ?:HPV if ASCUS ANCILLARY TESTING ?:HPV testing ordered. See Separate Report. SPECIMEN SOURCE ?:Cervical/vagi nal ThinPrep Vial, screening SPECIMEN ADEQUACY ?:Satisfactory for evaluation Endocervical component ? present. INTERPRETATION/R ESULT Atypical squamous cells of undetermined significance (ASCUS) Cytology 1st Screener ??:wst Signed by ?: ??Jutsa Barroso M.D. This specimen was screened by the FDA approved ThinPrep Imaging System and manually reviewed. NOTE: ??The Pap test is a screening technique, not a diagnostic procedure. ??It is used ??primarily to screen for squamous cancers and precursor lesions. ??Published studies have shown that it is subject to both false negative and false positive results. ??The pap test should not be used as the sole means to diagnose or exclude pre-malignant and malignant lesions. COLLECTED: ? ACCESSIONED: ??06/16/10 ?? SIGNED: ??06/18/10 [facility] PAP [place] CODE ASCUS [facility] Cervical/Vaginal (Cervical/Vagina l) 06/14/2010 10:18 AM CDT 06/14/2010 10:12 AM CDT Justyna Murcia MD PATHOLOGY/CYTOLOGY [facility] INTERNAL ZIP [phone] [id number] * ANTI HIV 1/2 [47185.0] (08/02/2008 4:13 PM CDT) ANTI HIV 1/2 Non-reacti ve [facility] Blood specimen (specimen) BLOOD SPECIMEN / Unknown 08/02/2008 4:13 PM CDT 08/02/2008 4:05 PM CDT Ayanna Johansen MD SEND OUTS [facility] [place]NAL ZIP [phone] [id number] from Last 3 Months or Most Recently Relevant to Health Maintenance Care Teams Votator Machine Operator Relationship Specialty Start Date End Date Flora Rico NP [address] [place] [id number] PCP - General Emergency Medicine 12/29/19 Ayanna Johansen MD [address] [place] [id number] 07/22/11
== END 2024-06-13 13:39 | disposition home or self-care (01) ==
LOC: MAMMO 13:38
PROVIDERS: PCP Nurse Practitioner Family; Visit Provider Nurse Practitioner Family
DX: Z12.31 Encounter for screening mammogram for malignant neoplasm of breast (principal); R92.2 Inconclusive mammogram
CPT/HCPCS: 77063; 77067